=== PATIENT | male | born 1995 | race Caucasian/White ===

== ENCOUNTER 2021-07-14 08:11 | Emergency (ER) | payer SELFPAY ==
[2021-07-14 08:21] VITALS: BP 151/92; PULSE 104; RESP 16; TEMP 36.4; O2SAT 100
--- NOTE | 2021-07-14 08:31 | ED.GENADUL_ITS ---
Discharge Plan Disposition Patient Disposition: HOME Condition: Stable Discharge Details Clinical Impression: Left otitis media with effusion Primary Care Provider: Unknown,Unknown ED Provider: Nelida Connolly Home Meds and New Rx's Prescriptions: New azithromycin [Zithromax] 500 mg tablet 500 mg PO DAILY 4 Days Qty: 4 0RF Rx Instructions: to start 07/15/21 Discharge Instructions Instructions: Ear Infection (ED) Additional Instructions: Your exam appears consistent with an ear infection called otitis media. These infections can sometimes be viral but can also be bacterial. A prescription for the antibiotic Zithromax has been sent electronically to [facility] in [facility] to start tomorrow. Drink plenty of fluids and get plenty of rest. Alternate tylenol and motrin as needed and directed for pain. You have been placed on care management list to arrange for a follow-up appointment with a primary care doctor to establish care and for reevaluation. You were also given referral information for the ear nose and throat doctor for follow-up if needed. Return immediately to the emergency department if you develop any worsening or new concerning symptoms. Referrals: Mike Love MD [ [facility] STAFF PHYSICIAN] - Discharge Data Discharge Physician: Nelida Connolly Medical Decision Making 25-year-old male presents with left ear pain since yesterday with bleeding from left ear this morning. Denies any fever, sore throat, runny nose or coughing. Right TM normal to inspection. Left TM appears erythematous, dull with serous effusion and fluid behind TM. There is bubbling noted but no obvious pe rforation. No signs of otitis externa. No foreign body noted. Will cover with antibiotics. He declines pain medication here. He states he was told at a young age she has a possible allergy to penicillin but states he is unsure of the reaction. Dose of Zithromax given here and prescription sent electronically to [facility]. Advised to alternate Tylenol and Motrin. He was placed on care management list to arrange for a follow-up appoint with the primary care doctor to establish care and for reevaluation. Usual and customary return precautions given prior to discharge. Medical Records Medical records reviewed: Yes I reviewed the patient's medical records. HPI General Mode of arrival: ambulatory . Date/Time Provider Initiated Documentation: 07/14/21 08:31 . Limitations to Documentation: no limitations . Information obtained by: patient . HPI Narrative: Patient is a 25-year-old male who presents to the ED with complaint of left ear pain since yesterday with bleeding from the left ear this morning. Patient states he took ibuprofen last night with some relief. 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 He denies any fever, runny nose, sore throat, difficulty swallowing or coughing. Related Data Home Medications Medication Instructions Recorded Confirmed azithromycin 500 mg tablet 500 mg PO DAILY 4 days #4 tabs 07/14/21 (Zithromax) Previous Rx's Medication Instructions Recorded azithromycin 500 mg tablet 500 mg PO DAILY 4 days #4 tabs 07/14/21 (Zithromax) Allergies Allergy/AdvReac Type Severity Reaction Status Date / Time peanuts Allergy Uncoded 07/14/21 08:25 General Stated Complaint: EarProblem ALEX: 4 Review of Systems All systems reviewed & are unremarkable except as noted in HPI and below Constitutional Constitutional: Reports as per HPI, Denies chills and Denies fever(s) Eyes Eyes: Denies blurry vision ENT Ears, Nose, Mouth, and Throat: Denies dizziness, Reports ear discharge (bleeding), Reports otalgia, Denies sore throat and Denies throat swelling Cardiovascular Cardiovascular: Denies chest pain and Denies dyspnea Respiratory Respiratory: Denies cough and Denies dyspnea Gastrointestinal Gastrointestinal: Denies abdominal pain, Denies diarrhea and Denies vomiting Genitourinary Genitourinary: Denies hematuria and Denies dysuria Musculoskeletal Musculoskeletal: Denies back pain and Denies numbness Integumentary/Breasts Skin/Breast: Denies lesions and Denies rash Neurologic Neurologic: Denies dizziness, Denies localized weakness and Denies numbness Allergic/Immunologic Allergic/Immunologic: Denies throat swelling PFSH All Active Problems (Updated 07/14/21 @ 08:50 by Nelida Connolly DO) Left otitis media with effusion (Acute) Social History Smoking/Tobacco Use Status: Current every day Tobacco Type: cigarettes Smoking risk assessment performed?: Yes Substance use type: does not use Exam Const General: cooperative, healthy appearing and no acute distress Orientation: alert, awake and oriented x3 HENMT Head: normal to inspection Ears: hearing grossly normal bilaterally, external ears normal, EAC's normal, mastoids normal on the left and TM abnormal dull on the left, wth effusion serous on the left, erythematous on the left and with fluid behind the TM on the left General nose exam: external nose normal Face and sinus: normal facial exam Mouth: oral mucosae normal Throat: posterior oropharynx normal Eyes General: appearance normal, both eyes and all related structures Neck Neck: normal visual inspection Resp Effort & Inspection: normal respiratory effort and able to speak in complete sentences Cardio Rate: regular rate Skin General skin exam: no rashes or lesions noted Neuro General: patient alert, patient awake and patient oriented x3 Motor: muscle tone normal throughout Extrem General: normal to inspection and full ROM Psych Appearance: grossly normal Affect: normal affect Course Vital Signs Vital signs: Vital Signs Temperature 97.5 F L 07/14/21 08:21 Pulse 104 H 07/14/21 08:21 Respiratory Rate 16 07/14/21 08:21 Blood Pressure 151/92 H 07/14/21 08:21 Pulse Oximetry 100 07/14/21 08:21 Temperature 97.5 F L 07/14/21 08:21 Temperature Source Temporal Artery Scan 07/14/21 08:21 Pulse 104 H 07/14/21 08:21 Respiratory Rate 16 07/14/21 08:21 Respiratory Effort 07/14/21 08:21 Blood Pressure 151/92 H 07/14/21 08:21 Blood Pressure Position Sitting 07/14/21 08:21 Pulse Oximetry 100 07/14/21 08:21 Oxygen Delivery Method Room Air 07/14/21 08:21 Oxygen Flow Rate 0 07/14/21 08:21 Pain Level 3 07/14/21 08:26
--- NOTE | 2021-07-14 08:56 | NUR.NOTE ---
Referral given to Care Management to establish care/ear infection, within 2 weeks. Needs PCP. Rosina Saravia
[2021-07-14] MEDS: Azithromycin 250 MG TAB 500 MG PO (09:10)
== END 2021-07-14 09:18 | disposition home or self-care (01) ==
PROVIDERS: Emergency Provider Physician Assistant
DX: H65.02 Acute serous otitis media, left ear (principal)
CPT/HCPCS: 99283